=== PATIENT | female | born 1980 | race Caucasian/White ===

== ENCOUNTER 2025-04-30 13:41 | Emergency (ER) | payer BC ==
[~2025-04-30] VITALS: Ht 165.1 cm; Wt 76.0 kg
[2025-04-30 13:43] VITALS: TEMP 98.6
--- NOTE | 2025-04-30 14:11 | RADIOLOGY REPORT ---
CLINICAL INDICATION: Finger Pain,LEFT TECHNIQUE: 1 radiographic views of the left hand and 2 views of the left 1st digit were obtained. Comparison: None FINDINGS/IMPRESSION: There is no evidence of acute fracture or dislocation. The visualized joint space is well maintained. The alignment is anatomical. There is no radiopaque foreign body.
--- NOTE | 2025-04-30 14:15 | Physician Documentation ---
History of Present Illness ~ Chief Complaint: Finger pain Stated Complaint: FINGER PAIN Time Seen by MD: 14:54 HPI Patient is seen today with complaints of pain of the left thumb after she states she got a little too aggressive with some pruning denny the other day. She de nies any crush injury and denies striking her thumb on anything on accident. She states her 1st MCP joint of her left hand is swollen and decreased range of motion and very painful. She denies any warmth or redness. She has no other concern or complaint at this time. Medication Reconciliation Allergies: Coded Allergies: No Known Allergies (Unverified , 04/30/25) Review of Systems Constitutional: Denies: chills, fever, weakness Eyes: Denies: pain, blurred vision ENT: Denies: ear pain, nose pain, throat pain, mouth pain Respiratory: Denies: cough, shortness of breath Cardiovascular: Denies: chest pain, palpitations Gastrointestinal: Denies: abdominal pain, nausea, vomiting Genitourinary: Denies: burning, dysuria Female Genitalia: Denies: vaginal discharge, pelvic pain Neurological: Denies: headache, dizziness Musculoskeletal: Denies: pain, swelling Integumentary: Denies: rash, lesions Allergic/Immunologic: Denies: hives, itching Hematologic/Lymphatic: Denies: no symptoms reported Psychiatric: Denies: depression, anxiety Physical Exam Vital Signs: Temperature: 98.6, Source: Temporal, Heart Rate: 89, Respiratory Rate: 16, BP: 155/91, Pulse Oximetry: 99, Weight: 76.000 Oxygen Flow Rate: 0 Progress Results/Orders Results/Orders Vital Signs 04/30/25 13:43 Temp 98.6 Pulse 89 Resp 16 B/P (MAP) 155/91 Pulse Ox 99 O2 Flow Rate 0 EKG/XRAY/CT/US/VASC/MRI Bone/Soft Tissue X-Ray (Ext.) : Additional Comment [address], [place], [facility] [address] DIAGNOSTIC RADIOLOGY Patient: JESICA MALDONADO Medical Record: [id number] [facility] : 1980, Age: 45 Sex: Female Location: ER Patient Status: REG ER Service Date/Time: 04/30/251346 Ordering Physician: ALICE ALVAREZ DO Exam: FINGER(S) CLINICAL INDICATION: Finger Pain,LEFT TECHNIQUE: 1 radiographic views of the left hand and 2 views of the left 1st digit were obtained. Comparison: None FINDINGS/IMPRESSION: There is no evidence of acute fracture or dislocation. The visualized joint space is well maintained. The alignment is anatomical. There is no radiopaque foreign body. Electronically Signed by:SANCHEZ DEVRIES MD Date & Time: 04/30/251408 Dictated by: SANCHEZ DEVRIES MD Dictation date and time: 04/30/251408 Primary Care Provider: NO PRIMARY CARE PROVIDER cc: ALICE ALVAREZ DO ~ Medical Decision Making Findings Patient is seen today with complaints of pain of the left thumb after she states she got a little too aggressive with some pruning denny the other day. She denies any crush injury and denies striking her thumb on anything on accident. She states her 1st MCP joint of her left hand is swollen and decreased range of motion and very painful. She denies any warmth or redness. She has no other concern or complaint at this time. X-ray taken of left thumb shows no sign of acute fracture, patient will be given Toradol shot 30 mg IM in the ED today. Prescription of meloxicam 15 mg one tab once a day sent to patient's pharmacy. Patient will continue Tylenol as needed for pain as well. Patient will follow up with primary care in 2-5 days if no better as needed sooner. Return to ED with any worsening, concerning or changing symptoms. Departure Disposition: 01 HOME / SELF CARE / HOMELESS Impression: Primary Impression: Pain in thumb joint with movement of left hand Condition: Improved Discharge Instructions: Arthritis, [id number] Additional Instructions: X-ray taken of left thumb shows no sign of acute fracture, patient will be given Toradol shot 30 mg IM in the ED today. Prescription of meloxicam 15 mg one tab once a day sent to patient's pharmacy. Patient will continue Tylenol as needed for pain as well. Patient will follow up with primary care in 2-5 days if no better as needed sooner. Return to ED with any worsening, concerning or changing symptoms. Referrals: NO PRIMARY CARE PROVIDER (PCP) Prescriptions Meloxicam (Meloxicam) 15 Mg Tablet 1 TAB PO DAILY for 30 Days, #30 TAB 0 Refills Prov: JEFFREY GUTIERREZ 04/30/25 Signature Scribe Signature: No scribe Attestation: No scribe MUNIRA WOOTEN NP Apr 30, 2025 14:15 JEFFREY GUTIERREZ Apr 30, 2025 16:01
[2025-04-30] MEDS ORDERED: MELO-102 PO (16:01)
[2025-04-30] MEDS: ketorolac trometh 30MG/ML vial 30 MG/ML VIAL IM STA (16:07)
[2025-04-30 16:13] VITALS: BP 134/89; PULSE 89; RESP 18; O2SAT 99
== END 2025-04-30 16:25 | disposition home or self-care (01) ==
LOC: ER 13:42
DX: M79.645 Pain in left finger(s) (principal)
CPT/HCPCS: 73140; 96372; 99283; J1885